=== PATIENT | female | born 1970 | race African-American/Black ===

== ENCOUNTER 2017-02-28 21:23 | Emergency (ER) | payer MEDICAID, OTHER ==
[~2017-02-28] VITALS: Ht 162.6 cm; Wt 54.0 kg
[~2017-02-28 21:23] MED LIST: DEPAKOTE; NAPROXEN; OMEPRAZOLE
[2017-02-28] MEDS ORDERED: KETOROLAC 60MG/2ML VIAL IM ONE (23:15)
[2017-02-28] MEDS ORDERED: CYCLOBENZAPRINE 10MG TABLET PO ONE (23:15)
[2017-02-28 23:45] LABS: CLARITY URINE CLOUDY (CLEAR); COLOR URINE YELLOW (YELLOW); GLUCOSE URINE NEGATIVE (NEGATIVE); KETONES URINE NEGATIVE (NEGATIVE); LEUKOCYTE ESTERASE URINE NEGATIVE (NEGATIVE); NITRITE URINE NEGATIVE (NEGATIVE); OCCULT BLOOD URINE 3+ (NEGATIVE); PH URINE 5.5 (4.5-8.0); PROTEIN URINE NEGATIVE (NEGATIVE); SPECIFIC GRAVITY URINE 1.026 (1.005-1.030)
[2017-03-01 01:55] VITALS: BP 140/54
== END 2017-03-01 02:01 | disposition home or self-care (01) ==
LOC: ER 22:30
DX: M54.31 Sciatica, right side (principal); R03.0 Elevated blood-pressure reading, without diagnosis of hypertension; K21.9 Gastro-esophageal reflux disease without esophagitis
CPT/HCPCS: 72100; 73502; 81001; 81025; 93971; 96372; 99285; J1885; Z7610

== ENCOUNTER 2017-03-10 14:47 | Emergency (ER) | payer OTHER ==
[~2017-03-10] VITALS: Ht 162.6 cm; Wt 53.0 kg
[2017-03-10 15:15] VITALS: BP 134/62
== END 2017-03-10 17:48 | disposition left against medical advice (07) ==
LOC: ER 15:40
DX: M79.1 Myalgia (principal); Z53.21 Procedure and treatment not carried out due to patient leaving prior to being seen by health care provider

== ENCOUNTER 2017-03-13 17:29 | Emergency (ER) | payer OTHER ==
[~2017-03-13] VITALS: Ht 162.6 cm; Wt 60.0 kg
[~2017-03-13 17:29] MED LIST changes: -DEPAKOTE; -NAPROXEN
[2017-03-13] MEDS ORDERED: METHOCARBAMOL 500MG TABLET PO ONE (19:15)
[2017-03-13] MEDS ORDERED: KETOROLAC 30MG/ML VIAL IM ONE (19:15)
[2017-03-13 19:30] VITALS: BP 131/56
== END 2017-03-13 19:43 | disposition home or self-care (01) ==
LOC: ER 18:20
DX: M54.5 Low back pain (principal); K21.9 Gastro-esophageal reflux disease without esophagitis; F17.200 Nicotine dependence, unspecified, uncomplicated
CPT/HCPCS: 96372; 99283; J1885

== ENCOUNTER 2017-03-21 12:02 | Emergency (ER) | payer MEDICAID, OTHER ==
[~2017-03-21] VITALS: Ht 162.6 cm; Wt 54.0 kg
[2017-03-21 12:33] VITALS: BP 121/76
== END 2017-03-21 18:22 | disposition left against medical advice (07) ==
LOC: ER 14:05
DX: M54.9 Dorsalgia, unspecified (principal); Z53.21 Procedure and treatment not carried out due to patient leaving prior to being seen by health care provider

== ENCOUNTER 2017-03-25 21:32 | Emergency (ER) | payer MEDICAID, OTHER ==
[~2017-03-25] VITALS: Ht 162.6 cm; Wt 54.0 kg
[2017-03-26] MEDS ORDERED: ONDANSETRON 4MG ODT PO ONE (04:15)
[2017-03-26] MEDS ORDERED: KETOROLAC 30MG/ML VIAL IV ONE (04:15)
[2017-03-26 04:31] VITALS: BP 133/71
== END 2017-03-26 05:02 | disposition home or self-care (01) ==
LOC: ER 22:16
DX: M54.16 Radiculopathy, lumbar region (principal); F17.200 Nicotine dependence, unspecified, uncomplicated
CPT/HCPCS: 81025; 96374; 99284; J1885; Q0162

== ENCOUNTER 2017-04-17 10:58 | Emergency (ER) | payer OTHER ==
[~2017-04-17] VITALS: Ht 162.6 cm; Wt 53.0 kg
[2017-04-17 12:58] VITALS: BP 109/84
[2017-04-17] MEDS ORDERED: KETOROLAC 60MG/2ML VIAL IM ONE (13:00)
== END 2017-04-17 13:20 | disposition home or self-care (01) ==
LOC: ER 10:58
DX: M54.42 Lumbago with sciatica, left side (principal); M54.41 Lumbago with sciatica, right side; F41.9 Anxiety disorder, unspecified; F31.9 Bipolar disorder, unspecified
CPT/HCPCS: 96372; 99283; J1885

== ENCOUNTER 2017-04-19 19:33 | Emergency (ER) | payer OTHER ==
[~2017-04-19] VITALS: Ht 162.6 cm; Wt 53.0 kg
[2017-04-19] MEDS ORDERED: KETOROLAC 60MG/2ML VIAL IM ONE (22:15)
[2017-04-19 22:41] VITALS: BP 128/74
== END 2017-04-19 22:42 | disposition home or self-care (01) ==
LOC: ER 19:57
DX: M54.40 Lumbago with sciatica, unspecified side (principal); F31.9 Bipolar disorder, unspecified; F41.9 Anxiety disorder, unspecified
CPT/HCPCS: 81025; 96372; 99283; J1885

== ENCOUNTER 2017-04-22 16:53 | Emergency (ER) | payer OTHER ==
[~2017-04-22] VITALS: Ht 162.6 cm; Wt 54.0 kg
[2017-04-22 17:39] VITALS: BP 134/78
[2017-04-22] MEDS: KETOROLAC 60MG/2ML VIAL IM ONE (21:41)
== END 2017-04-22 21:59 | disposition home or self-care (01) ==
LOC: ER 16:53
DX: M54.5 Low back pain (principal)
CPT/HCPCS: 96372; 99283; J1885

== ENCOUNTER 2017-05-10 20:05 | Emergency (ER) | payer OTHER ==
[~2017-05-10] VITALS: Ht 162.6 cm; Wt 41.0 kg
[2017-05-10 20:13] VITALS: BP 126/58
[2017-05-10] MEDS ORDERED: KETOROLAC 60MG/2ML VIAL IM ONE (23:00)
== END 2017-05-10 23:16 | disposition home or self-care (01) ==
LOC: ER 20:14
DX: M79.604 Pain in right leg (principal)
CPT/HCPCS: 81025; 96372; 99283; J1885

== ENCOUNTER 2017-05-17 04:31 | Emergency (ER) | payer MEDICAID, OTHER ==
[~2017-05-17] VITALS: Ht 170.2 cm; Wt 63.0 kg
[2017-05-17] MEDS ORDERED: KETOROLAC 15MG/ML VIAL IM ONE (07:45)
[2017-05-17 08:22] VITALS: BP 132/82
== END 2017-05-17 08:45 | disposition home or self-care (01) ==
LOC: ER 04:37
DX: M54.30 Sciatica, unspecified side (principal); M54.5 Low back pain; F17.200 Nicotine dependence, unspecified, uncomplicated
CPT/HCPCS: 96372; 99283; J1885

== ENCOUNTER 2017-05-23 16:23 | Emergency (ER) | payer MEDICAID ==
[~2017-05-23] VITALS: Ht 165.1 cm; Wt 50.0 kg
[2017-05-23] MEDS ORDERED: KETOROLAC 60MG/2ML VIAL IM ONE (18:45)
[2017-05-23 18:52] VITALS: BP 128/87
== END 2017-05-23 19:12 | disposition home or self-care (01) ==
LOC: ER 16:56
DX: M54.5 Low back pain (principal)
CPT/HCPCS: 96372; 99283; J1885

== ENCOUNTER 2017-06-02 20:31 | Emergency (ER) | payer MEDICAID ==
[~2017-06-02] VITALS: Ht 162.6 cm; Wt 53.0 kg
[2017-06-03] MEDS ORDERED: ONDANSETRON HCL 4MG TABLET PO ONE (04:00)
[2017-06-03] MEDS ORDERED: KETOROLAC 30MG/ML VIAL IM ONE (04:00)
[2017-06-03 05:01] VITALS: BP 135/81
== END 2017-06-03 05:03 | disposition home or self-care (01) ==
LOC: ER 21:24
DX: M54.40 Lumbago with sciatica, unspecified side (principal)
CPT/HCPCS: 96372; 99283; J1885; Q0162

== ENCOUNTER 2017-06-19 23:55 | Emergency (ER) | payer MEDICAID ==
[~2017-06-19] VITALS: Ht 162.6 cm; Wt 53.2 kg
[2017-06-20] MEDS ORDERED: CYCLOBENZAPRINE 10MG TABLET PO ONE (04:45)
[2017-06-20] MEDS ORDERED: KETOROLAC 60MG/2ML VIAL IM ONE (04:45)
[2017-06-20 05:08] VITALS: BP 123/90
== END 2017-06-20 05:00 | disposition home or self-care (01) ==
LOC: ER 23:55
DX: M54.5 Low back pain (principal)
CPT/HCPCS: 99283; J1885

== ENCOUNTER 2017-07-04 08:54 | Emergency (ER) | payer MEDICAID ==
[~2017-07-04] VITALS: Ht 175.3 cm; Wt 49.0 kg
[2017-07-04 09:07] VITALS: BP 116/89
[2017-07-04] MEDS ORDERED: KETOROLAC 60MG/2ML VIAL IM ONE (10:30)
== END 2017-07-04 10:35 | disposition home or self-care (01) ==
LOC: ER 09:50
DX: M54.41 Lumbago with sciatica, right side (principal)
CPT/HCPCS: 81025; 99283; J1885

== ENCOUNTER 2017-07-11 15:22 | Emergency (ER) | payer MEDICAID | END 2017-07-11 18:00 | disposition left against medical advice (07) | LOC: ER 17:11 | DX: M54.9 Dorsalgia, unspecified (principal); Z53.21 Procedure and treatment not carried out due to patient leaving prior to being seen by health care provider ==

== ENCOUNTER 2017-07-20 19:23 | Emergency (ER) | payer MEDICAID | END 2017-07-20 23:56 | disposition left against medical advice (07) | LOC: ER 19:23 | DX: Z53.21 Procedure and treatment not carried out due to patient leaving prior to being seen by health care provider (principal) ==

== ENCOUNTER 2017-08-01 16:19 | Emergency (ER) | payer MEDICAID ==
[~2017-08-01] VITALS: Ht 165.1 cm; Wt 52.0 kg
[2017-08-01 17:16] VITALS: BP 128/78
== END 2017-08-01 21:00 | disposition left against medical advice (07) ==
LOC: ER 16:48
DX: M54.5 Low back pain (principal); M54.30 Sciatica, unspecified side
CPT/HCPCS: 99281

== ENCOUNTER 2017-08-22 23:13 | Emergency (ER) | payer MEDICAID ==
[~2017-08-22] VITALS: Ht 162.6 cm; Wt 48.0 kg
[2017-08-23] MEDS ORDERED: MORPHINE SULFATE 4 MG/ML CPJ (NOT FOR IM USE) IV STA ×3 (01:35→07:17)
[2017-08-23] MEDS ORDERED: KETOROLAC 30MG/ML VIAL IV STA (03:26)
[2017-08-23 04:22] LABS: BASOPHILS % 0.8 % (0.0-2.0); EOSINOPHILS % 0.9 % (0.0-5.0); HEMOGLOBIN. 10.4 g/dL (12.0-16.0); LYMPHOCYTES % 13.2 % (20.0-50.0); MEAN CORPUSCULAR HEMOGLOBIN 33.4 pg (28.0-32.0); MEAN PLATELET VOLUME 7.2 fl (7.4-10.4); MONOCYTES % 5.8 % (2.0-8.0); NEUTROPHILS % 79.3 % (40.0-76.0); PLATELET 250 x1000/uL (130-400); RED BLOOD CELL COUNT 3.13 mill/uL (4.2-5.4); RED CELL DISTRIBUTION WIDTH 14.6 % (11.6-14.6)
[2017-08-23 04:23] LABS: PROTHROMBIN TIME 10.4 sec (9.4-11.6)
[2017-08-23 04:24] LABS: CHLORIDE 108 mEq/L (98-107)
[2017-08-23 04:32] LABS: ETHANOL BLOOD < 10 mg/dL
[2017-08-23 04:36] LABS: CLARITY URINE CLOUDY (CLEAR); COLOR URINE YELLOW (YELLOW); KETONES URINE NEGATIVE (NEGATIVE); LEUKOCYTE ESTERASE URINE NEGATIVE (NEGATIVE); NITRITE URINE NEGATIVE (NEGATIVE); OCCULT BLOOD URINE NEGATIVE (NEGATIVE); PH URINE 6.5 (4.5-8.0); PROTEIN URINE NEGATIVE (NEGATIVE); SPECIFIC GRAVITY URINE 1.027 (1.005-1.030)
[2017-08-23 04:59] LABS: *BENZODIAZEPINES SCREEN URINE NEGATIVE (NEGATIVE); *COCAINE SCREEN URINE NEGATIVE (NEGATIVE)
[2017-08-23 05:00] LABS: *AMPHETAMINES SCREEN URINE NEGATIVE (NEGATIVE); *BARBITURATES SCREEN URINE NEGATIVE (NEGATIVE); METHADONE URINE SCREEN NEGATIVE (NEGATIVE); PHENCYCLIDINE URINE SCREEN NEGATIVE (NEGATIVE)
[2017-08-23 05:04] LABS: CANNABINOID URINE SCREEN PRESUMTIVE POSITIVE (NEGATIVE); OPIATES URINE SCREEN PRESUMTIVE POSITIVE (NEGATIVE)
[2017-08-23 05:27] LABS: HCG SCREEN NEGATIVE
[2017-08-23] MEDS ORDERED: ACETAMINOPHEN 325MG TABLET PO PRN (07:45)
[2017-08-23] MEDS: SODIUM CHLORIDE 0.9% 1,000 ML IV SCH ×2 (08:30→09:02)
[2017-08-23 08:50] VITALS: BP 140/83
== END 2017-08-23 08:56 | disposition left against medical advice (07) ==
LOC: ER 23:13 → CANRESERV 08-23 08:43 → ENRESERV 08-23 08:43 → ER 08-23 08:56 → CANBEDREQ 08-23 10:17
DX: M25.551 Pain in right hip (principal); M54.30 Sciatica, unspecified side; G89.29 Other chronic pain; C41.4 Malignant neoplasm of pelvic bones, sacrum and coccyx; C79.51 Secondary malignant neoplasm of bone; E87.6 Hypokalemia; F12.10 Cannabis abuse, uncomplicated; F11.10 Opioid abuse, uncomplicated; D63.0 Anemia in neoplastic disease
CPT/HCPCS: 36415; 71045; 74176; 80053; 80305; 81003; 83690; 84075; 84703; 85025; 85610; 87040; 96374; 96375; 96376; 99285; G0482; J1885; J2270; J7040; Z7610

== ENCOUNTER 2017-08-23 21:50 | Emergency (ER) | payer MEDICAID ==
[~2017-08-23] VITALS: Ht 162.6 cm; Wt 45.0 kg
[2017-08-23 23:59] LABS: BASOPHILS % 0.6 % (0.0-2.0); CHLORIDE 104 mEq/L (98-107); EOSINOPHILS % 2.2 % (0.0-5.0); HEMATOCRIT. 29.7 % (36.0-48.0); HEMOGLOBIN. 10.4 g/dL (12.0-16.0); LYMPHOCYTES % 9.7 % (20.0-50.0); MEAN CORPUSCULAR HEMOGLOBIN 33.8 pg (28.0-32.0); MEAN CORPUSCULAR VOLUME 96.8 fL (81.0-99.0); MEAN PLATELET VOLUME 7.1 fl (7.4-10.4); MONOCYTES % 4.2 % (2.0-8.0); NEUTROPHILS % 83.3 % (40.0-76.0); PLATELET 261 x1000/uL (130-400); RED BLOOD CELL COUNT 3.07 mill/uL (4.2-5.4); RED CELL DISTRIBUTION WIDTH 14.7 % (11.6-14.6)
[2017-08-24 00:09] LABS: PROTHROMBIN TIME 10.3 sec (9.4-11.6)
[2017-08-24 00:28] LABS: CLARITY URINE CLEAR (CLEAR); COLOR URINE YELLOW (YELLOW); KETONES URINE TRACE (NEGATIVE); LEUKOCYTE ESTERASE URINE NEGATIVE (NEGATIVE); NITRITE URINE NEGATIVE (NEGATIVE); OCCULT BLOOD URINE NEGATIVE (NEGATIVE); PH URINE 5.5 (4.5-8.0); PROTEIN URINE NEGATIVE (NEGATIVE); SPECIFIC GRAVITY URINE 1.036 (1.005-1.030)
[2017-08-24 00:38] LABS: *BARBITURATES SCREEN URINE NEGATIVE (NEGATIVE); *BENZODIAZEPINES SCREEN URINE NEGATIVE (NEGATIVE); *COCAINE SCREEN URINE NEGATIVE (NEGATIVE); METHADONE URINE SCREEN NEGATIVE (NEGATIVE); PHENCYCLIDINE URINE SCREEN NEGATIVE (NEGATIVE)
[2017-08-24 00:39] LABS: *AMPHETAMINES SCREEN URINE NEGATIVE (NEGATIVE)
[2017-08-24 00:57] LABS: CANNABINOID URINE SCREEN PRESUMTIVE POSITIVE (NEGATIVE); OPIATES URINE SCREEN PRESUMTIVE POSITIVE (NEGATIVE)
[2017-08-24] MEDS ORDERED: MORPHINE SULFATE 4 MG/ML CPJ (NOT FOR IM USE) IV ONE ×4 (02:45→10:30)
[2017-08-24 03:04] LABS: HCG SCREEN NEGATIVE
[2017-08-24] MEDS ORDERED: KETOROLAC 30MG/ML VIAL IV ONE (04:45)
[2017-08-24] MEDS ORDERED: MORPHINE SULFATE 2 MG/ML CPJ (NOT FOR IM USE) IV ONE ×2 (07:30→10:30)
[2017-08-24 11:25] VITALS: BP 153/100
== END 2017-08-24 11:35 | disposition home or self-care (01) ==
LOC: ER 21:50
DX: G89.3 Neoplasm related pain (acute) (chronic) (principal); M25.551 Pain in right hip; F17.200 Nicotine dependence, unspecified, uncomplicated; F12.10 Cannabis abuse, uncomplicated
CPT/HCPCS: 36415; 80053; 80305; 81003; 84703; 85025; 85610; 96374; 96375; 96376; 99284; J1885; J2270; Z7610

== ENCOUNTER 2018-01-10 09:41 | Emergency (ER) | payer MEDICAID ==
[~2018-01-10] VITALS: Ht 165.1 cm; Wt 51.0 kg
[2018-01-10] MEDS ORDERED: OXYCODONE HCL/ACETAMINOPHEN 5/325MG TABLET PO ONE (10:15)
[2018-01-10 10:20] VITALS: BP 148/99
== END 2018-01-10 11:34 | disposition home or self-care (01) ==
LOC: ER 09:41
DX: M54.6 Pain in thoracic spine (principal); I10 Essential (primary) hypertension; F12.10 Cannabis abuse, uncomplicated; Z85.830 Personal history of malignant neoplasm of bone
CPT/HCPCS: 71045; 72070; 81025; 99284

== ENCOUNTER 2018-01-31 09:59 | Emergency (ER) | payer MEDICAID ==
[~2018-01-31] VITALS: Ht 165.1 cm; Wt 49.0 kg
[2018-01-31 10:13] VITALS: BP 125/87
== END 2018-01-31 16:02 | disposition home or self-care (01) ==
LOC: ER 15:22
DX: Z48.01 Encounter for change or removal of surgical wound dressing (principal); F12.10 Cannabis abuse, uncomplicated; Z95.9 Presence of cardiac and vascular implant and graft, unspecified
CPT/HCPCS: 99281

== ENCOUNTER 2018-09-02 19:07 | Emergency (ER) | payer MEDICAID ==
[~2018-09-02] VITALS: Ht 165.1 cm; Wt 55.0 kg
[2018-09-02] MEDS ORDERED: SODIUM CHLORIDE 0.9% 1,000 ML IV ONE (19:36)
[2018-09-02] MEDS ORDERED: MORPHINE SULFATE 4 MG/ML CPJ (NOT FOR IM USE) IV STA (19:36)
[2018-09-02] MEDS ORDERED: ONDANSETRON HCL 4MG/2ML INJ IV STA (19:36)
[2018-09-02] MEDS ORDERED: KETOROLAC 30MG/ML VIAL IV ONE (19:45)
[2018-09-02 20:21] LABS: BASOPHILS % 0.3 % (0.0-2.0); HEMATOCRIT. 29.1 % (36.0-48.0); HEMOGLOBIN. 9.8 g/dL (12.0-16.0); LYMPHOCYTES % 8.7 % (20.0-50.0); MEAN CORPUSCULAR HEMOGLOBIN 35.3 pg (28.0-32.0); MEAN PLATELET VOLUME 7.4 fl (7.4-10.4); PLATELET 251 x1000/uL (130-400); RED BLOOD CELL COUNT 2.77 mill/uL (4.2-5.4); RED CELL DISTRIBUTION WIDTH 20.2 % (11.6-14.6)
[2018-09-02 20:25] LABS: CHLORIDE 103 mEq/L (98-107)
[2018-09-02] MEDS ORDERED: HALOPERIDOL LACTATE 5MG/ML VIAL IM ONE (21:00)
[2018-09-02] MEDS ORDERED: POTASSIUM CHLORIDE 20MEQ TABLET SR PO ONE (21:00)
[2018-09-02 22:16] VITALS: BP 106/72
== END 2018-09-02 22:37 | disposition home or self-care (01) ==
LOC: ER 19:07
DX: G89.29 Other chronic pain (principal); M54.9 Dorsalgia, unspecified; E87.6 Hypokalemia; Z85.830 Personal history of malignant neoplasm of bone; Z95.9 Presence of cardiac and vascular implant and graft, unspecified
CPT/HCPCS: 36415; 80053; 85025; 96361; 96372; 96374; 96375; 99284; J1630; J1885; J2270; J2405; J7030; Z7610

== ENCOUNTER 2018-09-04 05:08 | Emergency (ER) | payer MEDICAID ==
[~2018-09-04] VITALS: Ht 167.6 cm; Wt 64.0 kg
[2018-09-04] MEDS ORDERED: SODIUM CHLORIDE 0.9% 1,000 ML IV ONE (06:48)
[2018-09-04] MEDS ORDERED: ONDANSETRON HCL 4MG/2ML INJ IV STA (06:48)
[2018-09-04] MEDS ORDERED: MORPHINE SULFATE 4 MG/ML CPJ (NOT FOR IM USE) IV STA (06:48)
[2018-09-04 07:06] LABS: CLARITY URINE CLEAR (CLEAR); COLOR URINE YELLOW (YELLOW); KETONES URINE NEGATIVE (NEGATIVE); LEUKOCYTE ESTERASE URINE NEGATIVE (NEGATIVE); NITRITE URINE NEGATIVE (NEGATIVE); OCCULT BLOOD URINE NEGATIVE (NEGATIVE); PROTEIN URINE NEGATIVE (NEGATIVE); SPECIFIC GRAVITY URINE 1.015 (1.005-1.030)
[2018-09-04 07:08] LABS: BASOPHILS % 1.3 % (0.0-2.0); EOSINOPHILS % 1.8 % (0.0-5.0); HEMATOCRIT. 29.5 % (36.0-48.0); HEMOGLOBIN. 9.9 g/dL (12.0-16.0); LYMPHOCYTES % 14.8 % (20.0-50.0); MEAN CORPUSCULAR HEMOGLOBIN 35.4 pg (28.0-32.0); MEAN CORPUSCULAR VOLUME 105.2 fL (81.0-99.0); MEAN PLATELET VOLUME 7.2 fl (7.4-10.4); MONOCYTES % 2.6 % (2.0-8.0); NEUTROPHILS % 79.5 % (40.0-76.0); PLATELET 256 x1000/uL (130-400); RED CELL DISTRIBUTION WIDTH 20.2 % (11.6-14.6)
[2018-09-04 07:12] LABS: CHLORIDE 107 mEq/L (98-107)
[2018-09-04 08:29] LABS: HCG SCREEN NEGATIVE
[2018-09-04] MEDS ORDERED: MORPHINE SULFATE 4 MG/ML CPJ (NOT FOR IM USE) IV ONE (08:30)
[2018-09-04 09:50] VITALS: BP 163/104
== END 2018-09-04 10:05 | disposition home or self-care (01) ==
LOC: ER 05:08
DX: G89.3 Neoplasm related pain (acute) (chronic) (principal); M54.5 Low back pain; K56.41 Fecal impaction; C80.1 Malignant (primary) neoplasm, unspecified; C79.51 Secondary malignant neoplasm of bone; D70.1 Agranulocytosis secondary to cancer chemotherapy
CPT/HCPCS: 36415; 71045; 74176; 80053; 81003; 83690; 84703; 85025; 93005; 96374; 96375; 96376; 99284; J2270; J2405; J7030; Z7610

== ENCOUNTER 2018-09-06 00:59 | Emergency (ER) | payer MEDICAID ==
[~2018-09-06] VITALS: Ht 175.3 cm; Wt 65.0 kg
[2018-09-06 01:01] VITALS: BP 148/90
[2018-09-06] MEDS ORDERED: ONDANSETRON 4MG ODT PO ONE (02:00)
[2018-09-06] MEDS ORDERED: MORPHINE SULFATE 10 MG/ML CPJ IM ONE (02:00)
== END 2018-09-06 03:05 | disposition home or self-care (01) ==
LOC: ER 00:59
DX: G89.3 Neoplasm related pain (acute) (chronic) (principal); M79.18 Myalgia, other site; C41.4 Malignant neoplasm of pelvic bones, sacrum and coccyx; F17.210 Nicotine dependence, cigarettes, uncomplicated; F12.90 Cannabis use, unspecified, uncomplicated
CPT/HCPCS: 96372; 99283; J2270; Q0162

== ENCOUNTER 2018-09-28 16:45 | Emergency (ER) | payer MEDICAID ==
[~2018-09-28] VITALS: Ht 162.6 cm; Wt 95.0 kg
[2018-09-28] MEDS ORDERED: OXYCODONE HCL/ACETAMINOPHEN 5/325MG TABLET PO ONE (18:30)
[2018-09-28 18:37] VITALS: BP 159/94
== END 2018-09-28 18:43 | disposition left against medical advice (07) ==
LOC: ER 16:45
DX: M76.01 Gluteal tendinitis, right hip (principal); M79.606 Pain in leg, unspecified; F12.10 Cannabis abuse, uncomplicated; Z88.5 Allergy status to narcotic agent; Z85.830 Personal history of malignant neoplasm of bone
CPT/HCPCS: 99283

== ENCOUNTER 2020-01-11 19:31 | Emergency (ER) | payer MEDICAID ==
[~2020-01-11] VITALS: Ht 165.1 cm; Wt 46.0 kg
[2020-01-11] MEDS ORDERED: KETOROLAC 60MG/2ML VIAL IM ONE (20:45)
[2020-01-11 20:50] VITALS: BP 142/80
== END 2020-01-11 21:21 | disposition left against medical advice (07) ==
LOC: ER 19:31
DX: C79.51 Secondary malignant neoplasm of bone (principal); M25.551 Pain in right hip; C80.1 Malignant (primary) neoplasm, unspecified; F12.10 Cannabis abuse, uncomplicated; F11.10 Opioid abuse, uncomplicated
CPT/HCPCS: 96372; 99283; J1885

== ENCOUNTER 2020-01-14 11:50 | Emergency (ER) | payer MEDICAID ==
[~2020-01-14] VITALS: Ht 162.6 cm; Wt 46.0 kg
[2020-01-14 12:45] VITALS: BP 143/102
[2020-01-14] MEDS ORDERED: KETOROLAC 30MG/ML VIAL IM ONE (12:45)
== END 2020-01-14 12:57 | disposition home or self-care (01) ==
LOC: ER 11:57
DX: G89.29 Other chronic pain (principal); M25.551 Pain in right hip; F12.10 Cannabis abuse, uncomplicated; F11.10 Opioid abuse, uncomplicated; Z85.9 Personal history of malignant neoplasm, unspecified
CPT/HCPCS: 96372; 99283; J1885

== ENCOUNTER 2020-01-16 18:53 | Emergency (ER) | payer MEDICAID ==
[~2020-01-16] VITALS: Ht 162.6 cm; Wt 43.5 kg
[2020-01-16 18:55] VITALS: BP 160/95
[2020-01-16] MEDS ORDERED: KETOROLAC 30MG/ML VIAL IV ONE (19:30)
[2020-01-16] MEDS ORDERED: KETOROLAC 30MG/ML VIAL IM ONE (19:45)
== END 2020-01-16 20:00 | disposition home or self-care (01) ==
LOC: ER 18:53
DX: M25.551 Pain in right hip (principal); G89.29 Other chronic pain; F12.10 Cannabis abuse, uncomplicated; F11.10 Opioid abuse, uncomplicated; Z85.9 Personal history of malignant neoplasm, unspecified
CPT/HCPCS: 96372; 96374; 99283; J1885

== ENCOUNTER 2020-01-17 15:24 | Emergency (ER) | payer MEDICAID ==
[~2020-01-17] VITALS: Ht 154.9 cm; Wt 43.5 kg
[2020-01-17 15:41] VITALS: BP 150/89
[2020-01-17] MEDS ORDERED: KETOROLAC 30MG/ML VIAL IM ONE (16:00)
== END 2020-01-17 16:10 | disposition home or self-care (01) ==
LOC: ER 15:35
DX: M25.551 Pain in right hip (principal); F12.10 Cannabis abuse, uncomplicated; F11.20 Opioid dependence, uncomplicated
CPT/HCPCS: 96372; 99283; J1885

== ENCOUNTER 2020-01-17 19:29 | Emergency (ER) | payer MEDICAID ==
[~2020-01-17] VITALS: Ht 162.6 cm; Wt 43.0 kg
[2020-01-17] MEDS ORDERED: IBUPROFEN 600MG TABLET PO ONE (20:30)
[2020-01-17 20:54] VITALS: BP 169/100
== END 2020-01-17 20:25 | disposition left against medical advice (07) ==
LOC: ER 19:29
DX: M25.551 Pain in right hip (principal); F12.10 Cannabis abuse, uncomplicated
CPT/HCPCS: 99281

== ENCOUNTER 2020-08-20 09:31 | Emergency (ER) | payer MEDICAID ==
[~2020-08-20] VITALS: Ht 162.6 cm; Wt 53.0 kg
[2020-08-20] MEDS ORDERED: ACETAMINOPHEN 325MG TABLET PO ONE (09:45)
[2020-08-20 10:11] VITALS: BP 130/75
[2020-08-20 11:01] LABS: HEMATOCRIT. 31.1 % (36.0-48.0); HEMOGLOBIN. 10.7 g/dL (12.0-16.0); MEAN CORPUSCULAR VOLUME 95.4 fL (81.0-99.0); MEAN PLATELET VOLUME 7.2 fl (7.4-10.4); PLATELET 172 x1000/uL (130-400); RED BLOOD CELL COUNT 3.26 mill/uL (4.2-5.4); RED CELL DISTRIBUTION WIDTH 17.4 % (11.6-14.6)
[2020-08-20 11:06] LABS: CHLORIDE 113 mEq/L (98-107)
[2020-08-20 11:08] LABS: CLARITY URINE CLEAR (CLEAR); COLOR URINE YELLOW (YELLOW); KETONES URINE NEGATIVE (NEGATIVE); LEUKOCYTE ESTERASE URINE NEGATIVE (NEGATIVE); NITRITE URINE NEGATIVE (NEGATIVE); OCCULT BLOOD URINE NEGATIVE (NEGATIVE); PH URINE 5.5 (4.5-8.0); PROTEIN URINE NEGATIVE (NEGATIVE); SPECIFIC GRAVITY URINE 1.023 (1.005-1.030); UROBILINOGEN URINE 0.2 E.U./dL (0.2-1.0)
[2020-08-20 11:18] LABS: HCG SCREEN NEGATIVE
[2020-08-20 11:32] LABS: PLATELET ESTIMATE NORMAL
== END 2020-08-20 11:29 | disposition left against medical advice (07) ==
LOC: ER 09:31
DX: R20.0 Anesthesia of skin (principal); M79.671 Pain in right foot; R53.1 Weakness; Z85.830 Personal history of malignant neoplasm of bone; Z92.21 Personal history of antineoplastic chemotherapy; Z92.3 Personal history of irradiation
CPT/HCPCS: 36415; 71045; 80053; 81003; 84703; 85025; 99284

== ENCOUNTER 2020-10-25 10:09 | Emergency (ER) | payer MEDICAID ==
[~2020-10-25] VITALS: Ht 162.6 cm; Wt 55.0 kg
[2020-10-25 11:26] LABS: BASOPHILS % 1.1 % (0.0-2.0); EOSINOPHILS % 0.2 % (0.0-5.0); HEMATOCRIT. 36.2 % (36.0-48.0); HEMOGLOBIN. 12.4 g/dL (12.0-16.0); LYMPHOCYTES % 28.3 % (20.0-50.0); MEAN CORPUSCULAR HEMOGLOBIN 31.8 pg (28.0-32.0); MEAN CORPUSCULAR VOLUME 93.4 fL (81.0-99.0); MEAN PLATELET VOLUME 6.9 fl (7.4-10.4); MONOCYTES % 12.1 % (2.0-8.0); NEUTROPHILS % 58.3 % (40.0-76.0); PLATELET 181 x1000/uL (130-400); RED BLOOD CELL COUNT 3.88 mill/uL (4.2-5.4); RED CELL DISTRIBUTION WIDTH 19.5 % (11.6-14.6)
[2020-10-25 11:33] LABS: CHLORIDE 113 mEq/L (98-107)
[2020-10-25 12:01] LABS: HCG SCREEN NEGATIVE
[2020-10-25 12:40] VITALS: BP 112/62
== END 2020-10-25 12:50 | disposition home or self-care (01) ==
LOC: ER 10:09
DX: R22.43 Localized swelling, mass and lump, lower limb, bilateral (principal); Z85.89 Personal history of malignant neoplasm of other organs and systems; Z92.21 Personal history of antineoplastic chemotherapy
CPT/HCPCS: 36415; 71045; 80053; 83880; 84703; 85025; 93970; 99285

== ENCOUNTER 2020-12-30 01:52 | Emergency (ER) | payer MEDICAID ==
[~2020-12-30] VITALS: Ht 165.1 cm; Wt 55.0 kg
[2020-12-30 01:56] VITALS: BP 152/98
== END 2020-12-30 03:30 | disposition left against medical advice (07) ==
LOC: ER 02:23
DX: M54.2 Cervicalgia (principal); Z53.21 Procedure and treatment not carried out due to patient leaving prior to being seen by health care provider

== ENCOUNTER 2021-12-16 15:13 | Emergency (ER) | payer MEDICAID ==
[~2021-12-16] VITALS: Ht 162.6 cm; Wt 50.0 kg
[2021-12-16 15:16] VITALS: BP 130/96
== END 2021-12-16 20:34 | disposition left against medical advice (07) ==
LOC: ER 15:13
DX: Z53.21 Procedure and treatment not carried out due to patient leaving prior to being seen by health care provider (principal)